=== PATIENT | male | born 1930 | race Caucasian/White ===

== ENCOUNTER → 2020-07-23 | Outpatient (CLI) | payer MEDICARE ==
--- NOTE | 2020-07-23 11:42 | Diagnostic Imaging Report ---
TECHNIQUE: 2 views of the sacrum, 5 views of lumbar spine HISTORY: ^[id number] ^[id number] ^LUMBAR SPINAL STENOSIS. COMPARISON: None. IMPRESSION: No acute displaced fracture or dislocation. Mild left sided curvature Severe disc space narrowing at L4-L5 and L5-S1 with moderate osteophytosis and associated facet arthropathy. Grade I L5 on S1 retrolisthesis. 1.0 cm calcific density overlying the right upper quadrant may represent a gallstone vs renal stone. Vascular calcifications. Signed by: Kareem Parker MD on 07/23/2020 11:39 AM
== END ==
LOC: RAD 10:28
PROVIDERS: ATTEND Internal Medicine
DX: M48.061 Spinal stenosis, lumbar region without neurogenic claudication (principal)
CPT/HCPCS: 72110; 72220